=== PATIENT | male | born 1995 | race Caucasian/White ===

== ENCOUNTER 2020-05-19 16:58 | Emergency (ER) | payer SELFPAY ==
[2020-05-19 16:59] VITALS: BP 152/85; PULSE 85; RESP 18; TEMP 36.6; O2SAT 96; BMI 30.3
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
[2020-05-19 17:08] VITALS: PULSE 84
[2020-05-19 17:11] LABS: Basophils # 0.1 10^3/uL (0.0-0.1); Basophils % 0.9 %; Eosinophils # 0.5 10^3/uL (0.0-0.8); Eosinophils % 4.2 %; Hemoglobin 13.4 g/dL (11.7-16.6); Lymphocytes # 4.8 10^3/uL (0.8-4.8); Lymphocytes % 44.1 %; Mean Corpuscular HGB Conc 32.7 g/dL (30.0-36.0); Mean Corpuscular Hemoglobin 27.6 pg (28.0-34.0); Mean Corpuscular Volume 84.5 fL (80-94); Mean Platelet Volume 9.6 fL (7.4-10.4); Monocytes # 0.9 10^3/uL (0.2-0.9); Monocytes % 7.9 %; Neutrophils # 4.6 10^3/uL (1.8-7.7); Neutrophils % 42.3 %; Nucleated Red Blood Cells % 0 %; Platelet Count 297 10^3/cmm (130-400); Red Blood Count 4.85 10^6/uL (4.1-5.3); Red Cell Distribution Width 13.3 % (12.1-15.1); White Blood Count 10.8 10^3/uL (4.0-10.0)
[2020-05-19] MEDS: sodium chloride 0.9% 500 ML 999 ML IV (17:21)
[2020-05-19 17:28] VITALS: RESP 21; O2SAT 98
[2020-05-19] MEDS: HYDROmorphone 1 mg/mL INJ 1 mL IVP ×2 (17:28→20:00)
[2020-05-19 17:41] LABS: Alanine Aminotransferase 14 U/L (0-41); Alkaline Phosphatase 55 IU/L (40-130); Aspartate Amino Transferase 13 U/L (0-40); Blood Urea Nitrogen 9 mg/dL (6-20); Carbon Dioxide 22 mmol/L (22-29); Chloride 105 mmol/L (98-107); Globulin 2.2 g/dL (1.3-4.6); Glomerular Filtration Rate 91.8 mL/min (90-130); Glucose 140 mg/dL (65-115); Osmolality Calculated 286 mOsm/kg (285-295); Sodium 139 mmol/L (136-145); Total Bilirubin 0.3 mg/dL (0.15-1.2); Total Protein 6.2 g/dL (6.6-8.7)
[2020-05-19 17:54] LABS: Alcohol Level < 10 mg/dL (0-10)
[2020-05-19] MEDS: iohexol 300 mg/mL 100 mL Btl IV (18:00)
[2020-05-19 18:05] VITALS: BP 93/62; PULSE 67; RESP 12; O2SAT 96
[2020-05-19] MEDS: acetaminophen 500 mg Tablet 650 MG PO (18:08)
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
[2020-05-19 18:30] VITALS: RESP 18
[2020-05-19] MEDS: sodium chloride 0.9% 1,000 ML 999 ML IV (18:35)
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
[2020-05-19 19:23] VITALS: BP 134/84; PULSE 88; RESP 16; O2SAT 100
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
== END 2020-05-19 20:01 ==
LOC: ER 17:20
PROVIDERS: Emergency Provider Emergency Medicine
DX: Z04.1 Encounter for examination and observation following transport accident (principal); R58 Hemorrhage, not elsewhere classified; F17.210 Nicotine dependence, cigarettes, uncomplicated; V89.2XXA Person injured in unspecified motor-vehicle accident, traffic, initial encounter
CPT/HCPCS: 12345; 36415; 70450; 71260; 72125; 72170; 73552; 73590; 74177; 80053; 80307; 83605; 85025; 86850; 86900; 96360; 96374; 96375; 96376; 99283; 99285; J1170; J7030; J7040; Q9967